=== PATIENT | female | born 1985 | race Caucasian/White ===

== ENCOUNTER 2017-02-19 04:37 | Emergency (ER) | payer SELFPAY ==
[~2017-02-19 04:37] MED LIST: ANTICRE6; NEOM1SOL20 OTB; PRENTAB26
[2017-02-19] MEDS ORDERED: ONDANSETRON INJ 2 MG/ML 2 ML VIAL IV STA (04:51)
[2017-02-19] MEDS ORDERED: KETOROLAC TROMETHAMINE 30 MG/ML VIAL IV STA (04:51)
[2017-02-19 05:19] LABS: BASO % 0.3 %; BASO ABS # 0.05 K/uL (0-0.2); COMPLETE YES; EOS % 2.4 %; HEMATOCRIT 43.3 % (37-47); IG% 0.3 %; LYMPH % 20.8 %; LYMPH ABS # 3.58 K/uL (1.2-3.4); MEAN CELL VOLUME 85.6 fL (80-100); MEAN CORPUSCULAR HEMOGLOBIN 28.7 pg (25-34); MEAN CORPUSCULAR HGB CONC 33.5 g/dl (32-36); MEAN PLATELET VOLUME 9.9 fL (7.4-10.4); MONO % 6.8 %; NEUT % 69.4 %; PLATELET COUNT 418 K/uL (130-400); RED BLOOD COUNT 5.06 M/uL (4.2-5.4)
[2017-02-19 05:35] LABS: URINE APPEARANCE CLOUDY (CLEAR); URINE COLOR DK YELLOW; URINE EPITHELIAL CELL AUTO >30 /lpf (0-5); URINE NITRITE NEG (NEG); URINE SPECIFIC GRAVITY 1.022 (1.000-1.030); UROBILINOGEN NEG (NEG); ZZUR CULT IF INDIC CLEAN CATCH YES
[2017-02-19 05:38] LABS: ALB/GLOB RATIO 0.8 (0.9-2); ALKALINE PHOSPHATASE 158 U/L (45-117); ALT/SGPT 29 U/L (12-78); BLOOD UREA NITROGEN 9 mg/dl (7-18); BUN/CREATININE RATIO 14.8 (10-20); CALCIUM 9.1 mg/dl (8.5-10.1); CARBON DIOXIDE 25 mmol/L (21-32); CHLORIDE 104 mmol/L (98-107); CREATININE 0.61 mg/dl (0.60-1.20); GLUCOSE 96 mg/dl (70-99); SODIUM 138 mmol/L (136-145)
[2017-02-19 05:49] LABS: MANUAL MICROSCOPIC REQUIRED? NO; REVIEW REQ? YES
[2017-02-19 05:50] LABS: URINE BILIRUBIN NEG (NEG)
[2017-02-19] MEDS ORDERED: CEFTRIAXONE SOD INJ 1 GM ADDVIAL IV STA (07:14)
[2017-02-19] MEDS ORDERED: FLUCONAZOLE 50 MG TAB PO ONE (07:15)
--- NOTE | 2017-02-19 07:15 | DIAGNOSTIC IMAGING REPORT ---
GALLBLADDER-ABD LIMITED HISTORY: 31 years-old Female right flank pain. Gallstones on CT. +wbc acute right-sided flank pain with cholelithiasis COMPARISON: CT abdomen and pelvis 02/19/2017 TECHNIQUE: Multiple real-time sonographic images of the abdominal right upper quadrant were obtained assessing grayscale appearance and color flow FINDINGS: The imaged pancreas is unremarkable with portions of the gland obscured by bowel gas. The liver is unremarkable without focal mass or intrahepatic biliary ductal dilation. Common bile duct is normal, 5.2 mm. Multiple gallstones are seen layering within the bladder lumen. Gallbladder wall measures in the upper limits of normal at 2.5 mm. Gallstones in the region of the gallbladder neck appears to be nonmobile during real-time imaging. No significant pericholecystic fluid. Sonographic Linda sign was unable to be performed secondary to patient receiving pain medication. Imaged right kidney is unremarkable without hydronephrosis. IMPRESSION: 1. Cholelithiasis with nonmobile gallstone in the region of the gallbladder neck. Gallbladder wall measures in the upper limits of 2.5 mm, however no significant pericholecystic fluid identified. Sonographic Linda sign was unable to be performed secondary to patient receiving recent pain medication. Correlate clinically to exclude early developing cholecystitis. 2. No biliary ductal dilation. The above report was generated using voice recognition software. It may contain grammatical, syntax or spelling errors. Electronically signed by: Ten Mike M.D. 02/19/2017 7:14 AM Dictated Date/Time: 02/19/2017 7:10 AM
--- NOTE | 2017-02-19 07:20 | DIAGNOSTIC IMAGING REPORT ---
ABDOMEN AND PELVIS CT WITHOUT CONTRAST CT DOSE: 1321.74 mGy.cm HISTORY: right flank pain. reports hx of stones TECHNIQUE: Multiaxial CT images of the abdomen and pelvis were performed without the use of intravenous and oral contrast according to the standard department stone protocol. A dose lowering technique was utilized adhering to the principles of ALARA. COMPARISON STUDY: None. FINDINGS: The lung bases are clear. The unenhanced liver, spleen, pancreas, and adrenal glands are unremarkable. No renal stones or hydronephrosis. No bowel wall thickening or obstruction. The pelvic organs are unremarkable. No suspicious lytic or blastic osseous lesions. Normal appendix. Multiple gallstones. This includes a 1.5 cm stone at the neck of the gallbladder. However, no gallbladder wall thickening. Normal caliber common bile duct. Duplicated bilateral renal collecting systems. No ureteral calculi. Of note, the right upper pole moiety is severely atrophic. The ureter to the atrophic upper pole moiety demonstrates mild urothelial thickening and mild periureteral fat stranding. IMPRESSION: 1. Bilateral duplicated renal collecting systems. The right upper pole moiety is severely atrophic. The ureter to the atrophic upper pole moiety demonstrates mild urothelial thickening and mild periureteral fat stranding. Therefore, this favors a pyelitis. Recommend correlation with urinalysis. 2. Cholelithiasis. There is also 1.5 cm stone at the neck of the gallbladder. However, no gallbladder wall thickening. Electronically signed by: Ruben Mcgraw M.D. 02/19/2017 7:19 AM Dictated Date/Time: 02/19/2017 7:11 AM
[2017-02-19] MEDS ORDERED: PATIENT'S ALLERGY INFO NEEDS ENTERED SCH (08:00)
[2017-02-19] MEDS ORDERED: CEPHALEXIN MONOHYDRATE 250 MG CAP PO ONE (08:15)
[2017-02-19] MEDS ORDERED: CEFTRIAXONE SOD 350MG/ML 1 GM VIAL IM STA (08:36)
[2017-02-19] MEDS ORDERED: CEPH500C PO (09:28)
[2017-02-19 09:41] VITALS: BP 126/63; PULSE 77; TEMP 36.6; O2SAT 98
--- NOTE | 2017-02-19 16:01 | EMERGENCY ROOM VISIT NOTE ---
ED Visit Note First contact with patient: 08:14 This is a 31-year-old female who is care was transferred to tx from Obdulio Davidson PA-C at change of shift. The patient presented to the emergency department with complaint of right flank pain. At the time of transfer of care, right upper quadrant ultrasound was pending to rule out biliary etiology. CT showed evidence for a probable pyelitis, and cholelithiasis with a 1.5 cm stone at the neck of the gallbladder. There was no gallbladder wall thickening. Radiologist report is as follows: GALLBLADDER-ABD LIMITED HISTORY: 31 years-old Female right flank pain. Gallstones on CT. +wbc acute right-sided flank pain with cholelithiasis COMPARISON: CT abdomen and pelvis 02/19/2017 TECHNIQUE: Multiple real-time sonographic images of the abdominal right upper quadrant were obtained assessing grayscale appearance and color flow FINDINGS: The imaged pancreas is unremarkable with portions of the gland obscured by bowel gas. The liver is unremarkable without focal mass or intrahepatic biliary ductal dilation. Common bile duct is normal, 5.2 mm. Multiple gallstones are seen layering within the bladder lumen. Gallbladder wall measures in the upper limits of normal at 2.5 mm. Gallstones in the region of the gallbladder neck appears to be nonmobile during real-time imaging. No significant pericholecystic fluid. Sonographic Linda sign was unable to be performed secondary to patient receiving pain medication. Imaged right kidney is unremarkable without hydronephrosis. IMPRESSION: 1. Cholelithiasis with nonmobile gallstone in the region of the gallbladder neck. Gallbladder wall measures in the upper limits of 2.5 mm, however no significant pericholecystic fluid identified. Sonographic Linda sign was unable to be performed secondary to patient receiving recent pain medication. Correlate clinically to exclude early developing cholecystitis. 2. No biliary ductal dilation. Ultrasound of the gallbladder again shows cholelithiasis with a non-mobile gallstone in the region of the gallbladder neck. The gallbladder wall measures in the upper limits of 2.5 mm, however no pericholecystic fluid or biliary ductal dilatation. Radiologist report is as follows: GALLBLADDER-ABD LIMITED HISTORY: 31 years-old Female right flank pain. Gallstones on CT. +wbc acute right-sided flank pain with cholelithiasis COMPARISON: CT abdomen and pelvis 02/19/2017 TECHNIQUE: Multiple real-time sonographic images of the abdominal right upper quadrant were obtained assessing grayscale appearance and color flow FINDINGS: The imaged pancreas is unremarkable with portions of the gland obscured by bowel gas. The liver is unremarkable without focal mass or intrahepatic biliary ductal dilation. Common bile duct is normal, 5.2 mm. Multiple gallstones are seen layering within the bladder lumen. Gallbladder wall measures in the upper limits of normal at 2.5 mm. Gallstones in the region of the gallbladder neck appears to be nonmobile during real-time imaging. No significant pericholecystic fluid. Sonographic Linda sign was unable to be performed secondary to patient receiving pain medication. Imaged right kidney is unremarkable without hydronephrosis. IMPRESSION: 1. Cholelithiasis with nonmobile gallstone in the region of the gallbladder neck. Gallbladder wall measures in the upper limits of 2.5 mm, however no significant pericholecystic fluid identified. Sonographic Linda sign was unable to be performed secondary to patient receiving recent pain medication. Correlate clinically to exclude early developing cholecystitis. 2. No biliary ductal dilation. Labs were also reviewed to show a leukocytosis and contaminated urinalysis. Urine cultures are pending: Results Past 24 Hours Test 02/19/17 04:51 02/19/17 04:55 02/19/17 05:05 Range/Units Urine Test NEG NEG Urine Color DK YELLOW Urine Appearance CLOUDY CLEAR Urine pH 5.0 4.5-7.5 Urine Specific [place] 1.022 1.000-1.030 Urine Protein 1+ NEG Urine Glucose (UA) NEG NEG Urine Ketones TRACE NEG Urine Occult Blood NEG NEG Urine Nitrite NEG NEG Urine Bilirubin NEG NEG Urine Urobilinogen NEG NEG Urine Leukocyte Esterase MODERATE NEG Urine WBC (Auto) 10-30 0-5 /hpf Urine RBC (Auto) 0-4 0-4 /hpf Urine Hyaline Casts (Auto) 0 0-5 /lpf Urine Epithelial Cells (Auto) >30 0-5 /lpf Urine Bacteria (Auto) 1+ NEG Urine Crystals CALCIUM OXALATE NONE PRSENT Urine Yeast (Auto) BUDDING NONE PRSENT White Blood Count 17.20 4.8-10.8 K/uL Red Blood Count 5.06 4.2-5.4 M/uL Hemoglobin 14.5 12.0-16.0 g/dL Hematocrit 43.3 37-47 % Mean Corpuscular Volume 85.6 80-100 fL Mean Corpuscular Hemoglobin 28.7 25-34 pg Mean Corpuscular Hemoglobin Concent 33.5 32-36 g/dl Platelet Count 418 130-400 K/uL Mean Platelet Volume 9.9 7.4-10.4 fL Neutrophils (%) (Auto) 69.4 % Lymphocytes (%) (Auto) 20.8 % Monocytes (%) (Auto) 6.8 % Eosinophils (%) (Auto) 2.4 % Basophils (%) (Auto) 0.3 % Neutrophils # (Auto) 11.94 1.4-6.5 K/uL Lymphocytes # (Auto) 3.58 1.2-3.4 K/uL Monocytes # (Auto) 1.17 0.11-0.59 K/uL Eosinophils # (Auto) 0.41 0-0.5 K/uL Basophils # (Auto) 0.05 0-0.2 K/uL RDW Standard Deviation 41.2 36.4-46.3 fL RDW Coefficient of Variation 13.2 11.5-14.5 % Immature Granulocyte % (Auto) 0.3 % Immature Granulocyte # (Auto) 0.05 0.00-0.02 K/uL Sodium Level 138 136-145 mmol/L Potassium Level 3.5-5.1 mmol/L Chloride Level 104 98-107 mmol/L Carbon Dioxide Level 25 21-32 mmol/L Anion Gap 9.0 3-11 mmol/L Blood Urea Nitrogen 9 7-18 mg/dl Creatinine 0.61 0.60-1.20 mg/dl Estimated GFR () 140.0 Estimated GFR (Non- 120.8 BUN/Creatinine Ratio 14.8 10-20 Random Glucose 96 70-99 mg/dl Calcium Level 9.1 8.5-10.1 mg/dl Total Bilirubin 0.4 0.2-1 mg/dl Aspartate Amino Transf (AST/SGOT) 15-37 U/L Alanine Aminotransferase (ALT/SGPT) 29 12-78 U/L Alkaline Phosphatase 158 45-117 U/L Total Protein 8.9 6.4-8.2 gm/dl Albumin 3.9 3.4-5.0 gm/dl Globulin 5.0 2.5-4.0 gm/dl Albumin/Globulin Ratio 0.8 0.9-2 Lipase 176 73-393 U/L Microbiology Results 02/19/17 Urine Culture, Received Pending At the time of transfer of care, the patient was also seen and evaluated by Dr. Valencia, ED attending physician, who also reviewed lab work and imaging studies, and agrees with antibiotic coverage and follow-up with general surgery. It is noted that the patient does not have insurance. With my discussion with the patient, the patient reports that she has been accepted as a patient at [facility], but has never required any follow-up with them. I did have our Manager Molecular talk with the patient as well, and we will contact Dr. Gutierrez's office to arrange a follow-up appointment. It is also noted that the patient had a penicillin allergy listed. Upon further discussion with the patient, she denies this allergy. Because she currently does not have insurance , Dr. Valencia recommended administering Keflex 500 mg while in the emergency department, and watch for any adverse reaction; the patient will otherwise be treated with Keflex 500 mg 3 times a day 10 days. The patient was observed for 30 minutes without any reaction to the Keflex, and was discharged with her son. The patient will follow-up with general surgery and [facility]. Case Management was able to set up an appointment with Dr. Parson for , 02/21 at 9 AM. She was instructed to return to the emergency department for any progressively worsening pain, persistent vomiting, developing fever or other concerning symptoms. The patient voiced understanding of all discharge instructions, and rated her discomfort a 3 out of 10 at the conclusion of my exam. MEDICAL DECISION MAKING: Patient presents with complaint of right flank pain. There are a couple different differentials better possible and that could explain her symptoms. She does have cholelithiasis with a possible enlarged gallstone within the gallbladder neck. She has marginal gallbladder wall thickening without any pericholecystic fluid or biliary ductal dilatation to suggest acute cholecystitis at this time. She also could potentially have a pyelonephritis/pyelitis. Remaining workup is not suggestive of bowel obstruction, appendicitis, visible diverticulitis, pancreatitis or hepatitis. DIAGNOSIS: 1. Cholelithiasis 2. Acute pyelitis
--- NOTE | 2017-02-19 23:12 | EMERGENCY ROOM VISIT NOTE ---
History First contact with patient: 04:45 Chief Complaint: FLANK PAIN Stated Complaint: PAIN ALONG RIGHT SIDE History of Present Illness The patient is a 31 year old female who presents to the Emergency Room with complaints of right flank pain worsening over the past one to 2 days. The patient reports a history of kidney stones, and states this feels similar to those episodes. She does not have fever or chills. No nausea or vomiting. She rates her discomfort an 8/10. The pain does not appear to improve or worsen with eating or drinking. The patient is not having chest pain, chest tightness, shortness of breath, or lower abdominal pain. She has not taken anything [id number] for her discomfort. She denies chance of . Review of Systems More than 10 systems were reviewed and otherwise negative with the exception of history of present illness. Past Medical/Surgical History History of kidney stones Social History Smoking Status: Never Smoker Housing Status: lives with family Current/Historical Medications Scheduled Cephalexin Monohydrate (Keflex), 500 MG PO TID Physical Exam Vital Signs Date Time Temp Pulse Resp B/P (MAP) Pulse Ox O2 Delivery O2 Flow Rate FiO2 02/19/17 09:41 36.6 77 16 126/63 98 Room Air 02/19/17 08:24 71 18 109/73 100 Room Air 02/19/17 06:57 71 15 120/79 97 Room Air 02/19/17 06:00 85 18 145/65 98 Room Air 02/19/17 04:40 36.6 92 18 137/88 98 Room Air Physical Exam VITALS: Vitals are noted on the nurse's note and reviewed by myself. Vital signs stable. GENERAL: Well-developed, well-nourished, female, who is in no acute distress and resting comfortably. Patient is cooperative with the examination. HEART: Regular rate and rhythm without murmurs gallops or rubs. LUNGS: Clear to auscultation bilaterally without wheezes, rales or rhonchi. No retractions or accessory muscle use. ABDOMEN: Positive normal bowel sounds x 4. Soft, nontender, without masses or organomegaly. No guarding or rebound tenderness. Mild right CVA tenderness. MUSCULOSKELETAL: No muscle atrophy, erythema, or edema noted. Full range of motion without joint tenderness in all extremities. Medical Decision & Procedures Laboratory Results 02/19/17 05:05 Red Blood Count 5.06, Mean Corpuscular Volume 85.6, Mean Corpuscular Hemoglobin 28.7, Mean Corpuscular Hemoglobin Concent 33.5, Mean Platelet Volume 9.9, Neutrophils (%) (Auto) 69.4, Lymphocytes (%) (Auto) 20.8, Monocytes (%) (Auto) 6.8, Eosinophils (%) (Auto) 2.4, Basophils (%) (Auto) 0.3, Neutrophils # (Auto) 11.94, Lymphocytes # (Auto) 3.58, Monocytes # (Auto) 1.17, Eosinophils # (Auto) 0.41, Basophils # (Auto) 0.05 02/19/17 05:05 Test 02/19/17 04:51 02/19/17 04:55 02/19/17 05:05 Urine Test NEG (NEG) Urine Color DK YELLOW Urine Appearance CLOUDY (CLEAR) Urine pH 5.0 (4.5-7.5) Urine Specific [place] 1.022 (1.000-1.030) Urine Protein 1+ (NEG) Urine Glucose (UA) NEG (NEG) Urine Ketones TRACE (NEG) Urine Occult Blood NEG (NEG) Urine Nitrite NEG (NEG) Urine Bilirubin NEG (NEG) Urine Urobilinogen NEG (NEG) Urine Leukocyte Esterase MODERATE (NEG) Urine WBC (Auto) 10-30 /hpf (0-5) Urine RBC (Auto) 0-4 /hpf (0-4) Urine Hyaline Casts (Auto) 0 /lpf (0-5) Urine Epithelial Cells (Auto) >30 /lpf (0-5) Urine Bacteria (Auto) 1+ (NEG) Urine Crystals CALCIUM OXALATE (NONE Urine Yeast (Auto) BUDDING (NONE PRSENT) White Blood Count 17.20 K/uL (4.8-10.8) Red Blood Count 5.06 M/uL (4.2-5.4) Hemoglobin 14.5 g/dL (12.0-16.0) Hematocrit 43.3 % (37-47) Mean Corpuscular Volume 85.6 fL (80-100) Mean Corpuscular Hemoglobin 28.7 pg (25-34) Mean Corpuscular Hemoglobin Concent 33.5 g/dl (32-36) Platelet Count 418 K/uL (130-400) Mean Platelet Volume 9.9 fL (7.4-10.4) Neutrophils (%) (Auto) 69.4 % Lymphocytes (%) (Auto) 20.8 % Monocytes (%) (Auto) 6.8 % Eosinophils (%) (Auto) 2.4 % Basophils (%) (Auto) 0.3 % Neutrophils # (Auto) 11.94 K/uL (1.4-6.5) Lymphocytes # (Auto) 3.58 K/uL (1.2-3.4) Monocytes # (Auto) 1.17 K/uL (0.11-0.59) Eosinophils # (Auto) 0.41 K/uL (0-0.5) Basophils # (Auto) 0.05 K/uL (0-0.2) RDW Standard Deviation 41.2 fL (36.4-46.3) RDW Coefficient of Variation 13.2 % (11.5-14.5) Immature Granulocyte % (Auto) 0.3 % Immature Granulocyte # (Auto) 0.05 K/uL (0.00-0.02) Anion Gap 9.0 mmol/L (3-11) Estimated GFR () 140.0 Estimated GFR (Non- 120.8 BUN/Creatinine Ratio 14.8 (10-20) Calcium Level 9.1 mg/dl (8.5-10.1) Total Bilirubin 0.4 mg/dl (0.2-1) Aspartate Amino Transf (AST/SGOT) U/L (15-37) Alanine Aminotransferase (ALT/SGPT) 29 U/L (12-78) Alkaline Phosphatase 158 U/L (45-117) Total Protein 8.9 gm/dl (6.4-8.2) Albumin 3.9 gm/dl (3.4-5.0) Globulin 5.0 gm/dl (2.5-4.0) Albumin/Globulin Ratio 0.8 (0.9-2) Lipase 176 U/L (73-393) Medications Administered Medications (Trade) Dose Ordered Sig/Ivan Route Start Time Stop Time Status Last Admin Dose Admin Ketorolac Tromethamine (Toradol Inj) 30 mg NOW STAT IV 02/19/17 04:51 02/19/17 04:53 DC 02/19/17 05:10 30 MG Ondansetron HCl (Zofran Inj) 4 mg NOW STAT IV 02/19/17 04:51 02/19/17 04:53 DC 02/19/17 05:10 4 MG Fluconazole (Diflucan Tab) 150 mg NOW ONCE PO 02/19/17 07:15 02/19/17 07:16 DC 02/19/17 08:24 150 MG Miscellaneous Information (Patient'S Allergy Info Needs Entered) 1 ea Q30M N/A 02/19/17 08:00 02/19/17 08:32 DC 02/19/17 07:53 1 EA Cephalexin Monohydrate (Keflex Cap) 500 mg NOW ONCE PO 02/19/17 08:15 02/19/17 08:17 DC 02/19/17 08:24 500 MG Ceftriaxone Sodium (Rocephin Im) 1,000 mg NOW STAT IM 02/19/17 08:36 02/19/17 08:37 DC 02/19/17 08:44 1,000 MG ED Course Physical exam and history were performed. Nursing notes, EMR, and Medication List were personally reviewed. Patient appears to have right-sided flank pain for the past few days. She rarely has a history of kidney stones. IV access was established and labs were obtained. Patient was given IV Toradol for comfort. CT scan was ordered. The patient's work is as above and was reviewed. The patient does have an elevated white blood cell count greater than 17,000. She does not have significant anemia, bandemia, or gross electrolyte imbalance. Urinalysis suggestive of infection. CT scan was read by Marvin as showing no ureteral calculi, however there was concern for gallstones. I did discuss this with the patient as well as her other results. Because of the location of the patient's discomfort I did elect to order the ultrasound. The patient had complete resolution of her pain after the IV Toradol, and she continues to remain stable. Ultrasound has yet to be performed at the time of shift change. I discussed the case with Karl Kebede PA-C, who will assume patient care at this time. Please see Mr. Kebede's dictation for further Emergency Department course, plan, and disposition. The chart was completed utilizing [employer] Voice Recognition Software. Grammatical errors, random word insertions, pronoun errors, and incomplete sentences are an occasional consequence of this system due to software limitations, ambient noise, and hardware issues. Any formal questions or concerns about the content, text, or information contained within the body of this dictation should be directly addressed to the provider for clarification. . Medical Decision Differential diagnosis: Etiologies such as renal colic, appendicitis, diverticulitis, mesenteric ischemia, aortic pathology, infections, inflammatory bowel disease, PUD, biliary pathology, UTI, as well as others were entertained. Impression Primary Impression: Right pyelitis Additional Impression: Cholelithiasis Departure Information Dispostion Home / Self-Care Condition GOOD Prescriptions Cephalexin Monohydrate (Keflex) 500 Mg Cap 500 MG PO TID for 10 Days, #30 CAP Prov: Jefry Kebede PA 02/19/17 Referrals Jose Parson, DO Forms HOME CARE DOCUMENTATION FORM, IMPORTANT VISIT INFORMATION Patient Instructions My [facility] Additional Instructions Complete all Keflex antibiotics as prescribed. Ibuprofen or Tylenol as needed for pain. You have an appointment scheduled with Dr. Parson on , 02/21 at 9 AM. Suggest arriving 15-30 minutes early to fill out necessary paperwork. Return to the emergency department for any progressively worsening pain, persistent vomiting or developing fever. Problem Qualifiers
== END 2017-02-19 09:42 | disposition home or self-care (01) ==
LOC: C.EDB 04:40
DX: N12 Tubulo-interstitial nephritis, not specified as acute or chronic (principal); K80.20 Calculus of gallbladder without cholecystitis without obstruction; Z87.442 Personal history of urinary calculi